=== PATIENT | female | born 1975 | race African-American/Black ===

== ENCOUNTER 2023-08-04 08:45 | Emergency (ER) | payer OTHER ==
[~2023-08-04] VITALS: Ht 177.8 cm; Wt 95.0 kg
[2023-08-04 08:53] VITALS: BP 133/89; PULSE 71; RESP 18; TEMP 98.5; O2SAT 99
[2023-08-04] MEDS: ACETAMINOPHEN 500MG TABLET PO ONE (09:20)
[2023-08-04] MEDS: CYCLOBENZAPRINE 10MG TABLET PO SCH (10:15)
[2023-08-04] MEDS: KETOROLAC 30MG/ML VIAL IM SCH (10:15)
[2023-08-04] MEDS ORDERED: IBUP-2029 MT (10:52)
[2023-08-04] MEDS ORDERED: METH-653 MT (10:52)
== END 2023-08-04 16:46 | disposition home or self-care (01) ==
LOC: ER 08:45
DX: M25.511 Pain in right shoulder (principal); Z88.2 Allergy status to sulfonamides; Z88.8 Allergy status to other drugs, medicaments and biological substances; Z98.890 Other specified postprocedural states; Z90.49 Acquired absence of other specified parts of digestive tract; W01.0XXA Fall on same level from slipping, tripping and stumbling without subsequent striking against object, initial encounter; Y93.89 Activity, other specified; Y92.89 Other specified places as the place of occurrence of the external cause; Y99.8 Other external cause status
CPT/HCPCS: 81025; 73030; 96372; 99283; J1885; Z7610